=== PATIENT | female | born 1965 | race Caucasian/White ===

== ENCOUNTER 2018-09-10 19:03 | Observation (INO) | payer OTHER ==
[2018-09-10] MEDS ORDERED: NS 500 ML IV ONE (19:31)
--- NOTE | 2018-09-10 19:31 | EDPHY ---
H & P Time Seen by Provider: 09/10/18 19:04 HPI/ROS: CHIEF COMPLAINT: Dizziness HISTORY OF PRESENT ILLNESS: The patient is a 53-year-old female with a history of Lyme disease and migraines who presents emergency department with fairly sudden onset of dizziness. The patient was watching TV when she suddenly became "super dizzy." She feels more off balance than the room spinning. She states it is worse when she moves her head or looks to the side. She has no headache. No neck pain. No tenderness or hearing loss. She has no focal weakness or numbness. No vision change. The patient has no recent trauma or fall. No fevers or chills. The patient denies any chest pain or shortness of breath. She has had no diaphoresis. No leg pain or swelling. She has REVIEW OF SYSTEMS: 10 systems were reveiwed and are negative with the exception of the elements mentioned in the history of present illness. Past Medical/Surgical History: Includes Lyme disease, migraine, chronic pain Social history: Patient does not smoke. She is . is out of town. Smoking Status: Never smoked Physical Exam: Vitals noted. Mildly tachycardic at 1:05 a.m.. Blood pressure is elevated 180/ 93. GENERAL: Anxious appearing, alert. HEENT: Eyes normal to inspection, normal pharynx, no signs of dehydration. NECK: Normal, supple. No bruit RESPIRATORY: Clear to auscultation bilaterally, no rales, rhonchi or wheezing. CVS: Mildly tachycardic with regular rhythm, no rubs, murmurs, or gallops. ABDOMEN: Soft, nontender, nondistended, no organomegaly. BACK: Normal to inspection, no CVA tenderness. SKIN: Normal color, no rash, warm, dry. No pallor. EXTREMITIES: No pedal edema, no calf tenderness, no Homans sign or cords, no joint swelling. NEURO/PSYCH: Higher functions: Alert and Oriented x3. Normal speech and cognition. Anxious appearing. Cranial nerves: Normal as tested. Cerebellar: Normal as tested. Good finger to nose, good [id number], normal gait. Peripheral exam: Normal motor exam. Normal sensation. Normal reflexes. Constitutional: Initial Vital Signs Temperature (C) 36.7 C 09/10/18 19:13 Heart Rate 105 H 09/10/18 19:13 Respiratory Rate 20 09/10/18 19:13 Blood Pressure 180/93 H 09/10/18 19:13 O2 Sat (%) 98 09/10/18 19:13 O2 Delivery Mode Room Air Allergies/Adverse Reactions: azithromycin Allergy (Verified 09/10/18 19:17) Home Medications: Medication Instructions Recorded Carisoprodol [Soma (*)] 350 mg PO TIDMEAL PRN 09/10/18 HYDROcodone/APAP 10/325 [Pine 1 each PO Q6 PRN 09/10/18 10/325 (*)] Medical Decision Making - Diagnostics Imaging Results: Imaging Impressions Head CT 09/10/18 19:31 Impression: 1. Nothing acute. 2. Right frontal falcine tumor or dural-based tumor/mass. Primary differential is a meningioma, measuring at 3.1 x 3.1 x 3.2 cm. Findings and recommendations discussed with Mary Grace Hong M.D., at 8:00 p.m., on September 10, 2018. Final report concurs with initial preliminary interpretation. ED Course/Re-evaluation: I met EMS on arrival. EMS treated the patient with Zoan. I took report from the general utility machine operator. In the emergency department I discussed possible etiologies with the patient. I answered all her questions. Laboratory studies were obtained. EKG: Sinus rhythm. Normal axis. Normal intervals. There is ST depression V3 through V6. Patient's CBC was unremarkable. Chemistry panel is notable for low potassium of 2.9. Renal function was normal. Coags were normal. Head CT: Please refer the dictated report. Patient has a significant meningioma noted. This is likely in the falcine. There is mass effect. I discussed the case with Dr. Ana Olivares. I discussed the results with the patient. I answered all her questions. I discussed the case with Dr. Lomax from Neurosurgery. He will evaluate the patient. I discussed the case with Dr. Garcia from the hospitalist service. He will admit. Differential Diagnosis: My differential includes but is not limited to ACS, acute OK, dysrhythmia, dissection, aneurysm, - Data Points Laboratory Results: Laboratory Results 09/10/18 19:20 09/10/18 19:20 09/10/18 09/10/18 09/10/18 19:28 19:20 19:20 WBC RBC Hgb Hct MCV MCH MCHC RDW Plt Count MPV Neut % (Auto) Lymph % (Auto) [place] % (Auto) Eos % (Auto) Baso % (Auto) Nucleat RBC Rel Count Absolute Neuts (auto) Absolute Lymphs (auto) Absolute Monos (auto) Absolute Eos (auto) Absolute Basos (auto) Absolute Nucleated RBC Immature Gran % Immature Gran # PT 12.7 SEC SEC (12.0-15.0) INR 0.93 (0.83-1.16) APTT 30.9 SEC SEC (23.0-38.0) Sodium 138 mEq/L mEq/L (135-145) Potassium 2.9 mEq/L L mEq/L (3.5-5.2) Chloride 109 mEq/L mEq/L (97-110) Carbon Dioxide 19 mEq/l L mEq/l (22-31) Anion Gap 10 mEq/L mEq/L (6-14) BUN 14 mg/dL mg/dL (7-23) Creatinine 0.6 mg/dL mg/dL (0.6-1.0) Estimated GFR > 60 Glucose 132 mg/dL H mg/dL (70-100) Calcium 10.0 mg/dL mg/dL (8.5-10.4) POC Troponin I 0.00 ng/mL ng/mL (0.00-0.08) 09/10/18 19:20 WBC 5.66 10^3/uL 10^3/uL (3.80-9.50) RBC 4.89 10^6/uL 10^6/uL (4.18-5.33) Hgb 14.5 g/dL g/dL (12.6-16.3) Hct 42.2 % % (38.0-47.0) MCV 86.3 fL fL (81.5-99.8) MCH 29.7 pg pg (27.9-34.1) MCHC 34.4 g/dL g/dL (32.4-36.7) RDW 12.2 % % (11.5-15.2) Plt Count 228 10^3/uL 10^3/uL (150-400) MPV 9.2 fL fL (8.7-11.7) Neut % (Auto) 50.3 % % (39.3-74.2) Lymph % (Auto) 38.7 % % (15.0-45.0) [place] % (Auto) 7.2 % % (4.5-13.0) Eos % (Auto) 2.7 % % (0.6-7.6) Baso % (Auto) 0.9 % % (0.3-1.7) Nucleat RBC Rel Count 0.0 % % (0.0-0.2) Absolute Neuts (auto) 2.85 10^3/uL 10^3/uL (1.70-6.50) Absolute Lymphs (auto) 2.19 10^3/uL 10^3/uL (1.00-3.00) Absolute Monos (auto) 0.41 10^3/uL 10^3/uL (0.30-0.80) Absolute Eos (auto) 0.15 10^3/uL 10^3/uL (0.03-0.40) Absolute Basos (auto) 0.05 10^3/uL 10^3/uL (0.02-0.10) Absolute Nucleated RBC 0.00 10^3/uL 10^3/uL (0-0.01) Immature Gran % 0.2 % % (0.0-1.1) Immature Gran # 0.01 10^3/uL 10^3/uL (0.00-0.10) PT INR APTT Sodium Potassium Chloride Carbon Dioxide Anion Gap BUN Creatinine Estimated GFR Glucose Calcium POC Troponin I Medications Given: Discontinued Medications Sodium Chloride (Ns) 500 mls @ 1,000 mls/hr IV EDNOW ONE PRN Reason: Protocol Stop: 09/10/18 20:00 Last Admin: 09/10/18 19:54 Dose: 500 mls Lorazepam (Ativan Injection) 0.5 mg IVP ONCE ONE Stop: 09/10/18 20:50 Last Admin: 09/10/18 20:50 Dose: 0.5 mg Meclizine HCl (Meclizine Hcl) 25 mg PO EDNOW ONE Stop: 09/10/18 20:14 Last Admin: 09/10/18 20:24 Dose: 25 mg Potassium Chloride (Klor-Con) 40 meq PO EDNOW ONE Stop: 09/10/18 20:11 Last Admin: 09/10/18 20:24 Dose: 40 meq Point of Care Test Results: Chemistry 09/10/18 19:28 POC Troponin I 0.00 ng/mL ng/mL (0.00-0.08) Departure - Departure Disposition: [facility] Inpatient Acute Clinical Impression: Dizziness, Meningioma Condition: Good
[2018-09-10 19:38] LABS: PLATELET COUNT 228 10^3/uL (150-400)
[2018-09-10 19:46] LABS: INR 0.93 (0.83-1.16); PROTIME(PATIENT) 12.7 SEC (12.0-15.0)
[2018-09-10] MEDS ORDERED: POTASSIUM CL 10 MEQ TAB PO ONE (20:10)
[2018-09-10] MEDS ORDERED: MECLIZINE HCL 25 MG TAB PO ONE (20:13)
[2018-09-10] MEDS ORDERED: PROMETHAZINE HCL 25 MG/ML INJ IVP PRN (20:17)
[2018-09-10] MEDS ORDERED: ONDANSETRON 4 MG/2 ML VIAL IVP PRN (20:17)
[2018-09-10] MEDS ORDERED: ACETAMINOPHEN 325 MG TAB PO PRN (20:17)
[2018-09-10] MEDS ORDERED: ONDANSETRON DISINTEGRATING 4 MG TAB PO PRN (20:17)
[2018-09-10] MEDS ORDERED: LORazepam 2 MG/ML INJ ONE (20:48)
[2018-09-10] MEDS ORDERED: LORazepam 2 MG/ML INJ IVP ONE ×2 (20:49→21:00)
[2018-09-10] MEDS ORDERED: GADOBUTROL 10 ML VIAL IVP ONE (21:20)
[2018-09-10] MEDS: NS 1,000 ML IV SCH (22:37)
--- NOTE | 2018-09-10 22:45 | CPEKG ---
Test Reason : OPEN Blood Pressure : / mmHG Vent. Rate : 089 BPM Atrial Rate : 091 BPM P-R Int : 166 ms QRS Dur : 110 ms QT Int : 386 ms P-R-T Axes : 039 016 -01 degrees QTc Int : 470 ms Sinus rhythm Nonspecific repol abnormality, diffuse leads Confirmed by Mary Grace Hong ([id number]) on 09/10/2018 10:44:58 PM Referred By: Mary Grace Hong Confirmed By:Mary Grace Hong
[2018-09-10] MEDS: oxyCODONE IR 5 MG TAB PO PRN (23:09)
[2018-09-10] MEDS ORDERED: CARISOPRODOL 350 MG TAB PO PRN (23:18)
[2018-09-10] MEDS ORDERED: LORazepam 2 MG/ML INJ IV PRN (23:45)
--- NOTE | 2018-09-11 01:44 | GHP ---
[f rep st] HISTORY AND PHYSICAL DATE OF ADMISSION: 09/10/2018 CHIEF COMPLAINT: Dizziness and new finding of likely meningioma. HISTORY OF PRESENT ILLNESS: The patient is a 53-year-old female with a past medical history of migra ine headaches who presented to the [facility] Emergency Room after experiencing a sen se of dizziness earlier today. The patient denies feeling a sense of vertigo. In the emergency room she had a CT scan of her head, which showed evidence of a right frontal falcine tumor or dural-based tumor/mass with primary consideration being a meningioma. The case was reviewed with neurosurgery a nd is recommended for admission to the hospital for further investigation of this mass. The patient states she has a history of chronic Lyme disease, chronic bilateral neck discomfort. She is not curr ently on any antibiotic therapy. PAST MEDICAL HISTORY: Migraine headaches, stated history of chronic Lyme disease. PAST SURGICAL HISTORY: None. MEDICATIONS: Soma 350 mg 3 times a day, hydrocodone 10/325 every 6 hours as needed. ALLERGIES: Azithromycin. FAMILY HISTORY: No family history of any brain tumors. SOCIAL HISTORY: The patient is a nonsmoker. She is currently . REVIEW OF SYSTEMS: CONSTITUTIONAL: No complaints of any fevers or chills. ENT: No recent upper re spiratory illnesses. CARDIOVASCULAR: No complaints of any chest pains, palpitations, or syncopal ep isodes. RESPIRATORY: No complaints of shortness of breath or productive cough. GI: No focal abdom inal pain. No nausea, vomiting, diarrhea, constipation. : No reports of any urinary incontinence . NEUROLOGIC: Positive for history of migraine headaches. She describes chronic low neck pain as w ell. HEMATOLOGIC: No history of any deep vein thrombosis or pulmonary embolism. PSYCHIATRIC: No h istory of anxiety or depression. ENDOCRINE: No history of any polyuria or heat intolerance. SKIN: No new skin rashes. MUSCULOSKELETAL: No focal joint pains. PHYSICAL EXAM: VITAL SIGNS: Temperature 36.7, blood pressure 180/93, which has improved to 158/85, heart rate 105, respirations 20, saturating 98% on room air. GENERAL: Patient appears comfortable. She is awake, alert, conversant, no acute distress, able to provide a good history. HEENT: Extraocu lar movements appear intact. Pupils equal and reactive. NECK: Supple. No thyroid enlargement appr eciated. CHEST: Clear to auscultation with normal respiratory effort. HEART: Regular rate and rhy thm. No murmurs. ABDOMEN: Soft, nontender, nondistended. : No Mendoza catheter in place. EXTREM ITIES: No significant edema noted. NEUROLOGIC: Cranial nerves 2-12 appear intact with 5/5 strength in extremities. LABS: White blood cell count 5, hemoglobin 14, platelets 228. Sodium 138, potassium 2.9, chloride 1 09, bicarb 19, BUN 14, creatinine 0.6, glucose of 132. INR is 0.93, PTT is 30. Troponin 0.00. ASSESSMENT/PLAN: Dizziness, uncertain if her symptoms are related to her current meningioma, but it does appear to be causing some effect on the brain tissue itself. Meningioma-suspected based upon CT and MR imaging. Await further recommendations from Neurosurgery c onsidering size. Hypokalemia, uncertain etiology. Replace and recheck again tomorrow morning. Check magnesium level as well. Deep venous thrombosis prophylaxis. Will hold heparin or Lovenox for now pending further recommendat ions from Neurosurgery. DISPOSITION: I recommend admission under inpatient status for neuro checks and close monitoring of h er neurologic status. /[id number]/MODL
[2018-09-11 05:29] LABS: PLATELET COUNT 196 10^3/uL (150-400)
[2018-09-11] MEDS: oxyCODONE IR 5 MG TAB PO PRN (07:22)
--- NOTE | 2018-09-11 08:50 | NEUSURGPN ---
Assessment/Plan: 53 yo female with acute onset of dizziness yesterday MRI brain: heterogenously enhancing dural based mass at the right frontal lobe, without surrounding brain edema. Likely meningioma - do not believe dizziness is from right frontal mass - will require surgical intervention with craniotomy for resection and biospy of mass but does not need to be done on this hospital admission Full consult note dictated. Subjective: Continues to have dizziness. No current nausea/vomiting. Objective: Awake. Alert. PERRL. EOMI Facial expression symmetrical Muscle strength full at 5/5 Sensation intact - Physician Discussed Patient with : [facility] Physical Exam - Vitals, I&O, Labs I and O 09/10/18 09/11/18 09/12/18 05:59 05:59 05:59 Intake Total 500 Output Total 1000 350 Balance -500 -350 Weight 58.06 kg Intake: IV Infused (ml) 500 Output: Urine (ml) 1000 350 Bedside Commode 1000 350 Other: Number of Voids Bedside Commode 1 1 Vital Signs Temp Pulse Resp BP Pulse Ox 36.9 C 88 16 140/87 H 96 09/11/18 07:49 09/11/18 07:49 09/11/18 07:49 09/11/18 07:49 09/11/18 07:49 Laboratory Results 09/11/18 05:00 09/11/18 05:00 ICD10 Worksheet Patient Problems: Problems Problem Status Onset Dizziness Acute Meningioma Acute
[2018-09-11] MEDS: HYDROCODONE/APAP 10/325 TAB PO PRN ×2 (09:34→17:29)
[2018-09-11] MEDS: POTASSIUM CL 10 MEQ TAB PO SCH (10:16)
--- NOTE | 2018-09-11 11:28 | GCON ---
[f rep st] CONSULTATION DATE OF CONSULTATION: 09/11/2018 HPI: The patient is a 53-year-old female who presented to the emergency department yesterday with acute onset of dizziness. She denies any trauma, injury, or triggering events. She describes the dizziness as an unsteadiness or lightheadedness rather than a vertigo-type sensation. At one point, she was feeling nauseated; however, this has resolved. No emesis. No seizures. No upper or lower extremity weakness, pain, numbness, or tingling. No changes in her speech. No difficulties with swallowing or changes in vision. PAST MEDICAL HISTORY: Lyme disease, chronic neck and back pain. PAST SURGICAL HISTORY: . SOCIAL HISTORY: Patient denies tobacco and recreational drug use. She lives with her and her son who is 17 years old. ALLERGIES: Azithromycin. CURRENT HOME MEDICATIONS: Soma and [place]. FAMILY HISTORY: No pertinent neurosurgical family history. REVIEW OF SYSTEMS: Negative except for what is mentioned in the HPI. PHYSICAL EXAM: GENERAL: Patient is seen, examined. Appears to be in no apparent distress. Mood and affect are appropriate. Alert and oriented. VITAL SIGNS: Blood pressure 140/87, heart rate 88, respirations 16, breathing 96% on room air, temperature 36.9. HEENT: Extraocular movements are intact. Pupils are equal and reactive. Facial expression is symmetrical. Tongue is midline with protrusion. Hearing is grossly intact. NEUROLOGIC: Speech is without dysarthria. Muscle strength is well preserved in upper and lower extremities at a 5/5, and sensation is intact to light touch. RESULTS: White count 4.32, hemoglobin 12.7, hematocrit 38.0, platelet count 196. PT 12.7, INR 0.93, PTT 30.9. Sodium 139, potassium 4.2, chloride 113, bicarb 22. BUN 11, creatinine 0.5. MRI of the brain: Heterogeneously enhancing dural-based mass at the right frontal lobe without surrounding brain edema contributing to mild surrounding parenchymal mass effect. Primary differential is a nonaggressive dural-based lesion such as a meningioma. ASSESSMENT AND PLAN: In summary, the patient is a 53-year-old female who presented with acute onset of dizziness, now slightly improved. She had a CT and MRI of the brain completed which demonstrates a heterogeneously enhancing dural-based mass at the right frontal lobe without surrounding brain edema, which is likely a meningioma. We do not believe the meningioma is the cause of her acute onset of dizziness. The patient will require, at some point, a craniotomy for resection and biopsy of the meningioma; however, this does not need to be done on this hospital admission. She does not require any Keppra or Decadron. We will defer further workup of dizziness to hospitalist. Patient can be discharged from our standpoint and follow up as an outpatient to schedule surgery. The patient was seen by myself and Dr. Lomax. /[id number]/MODL MTDD
[2018-09-11] MEDS: DIAZEPAM 5 MG TAB PO PRN ×2 (11:47→22:10)
[2018-09-11] MEDS: OXYMETAZOLINE 30 ML NASAL SPRAY EACHNARE SCH ×2 (11:48→22:08)
[2018-09-11] MEDS: MECLIZINE HCL 25 MG TAB PO PRN (11:48)
[2018-09-11] MEDS: NS 1,000 ML IV SCH (11:48)
--- NOTE | 2018-09-11 13:05 | HOSPPROG ---
Hospitalist Progress Note Assessment/Plan: 53y female with c/o dizzyness. First encounter, chart reviewed. #Dizzyness -likely inner ear issue -try meclizine, valium -cont supportive care #Meningioma -will need further workup -will schedule as outpt #Hypokalemia -resloved #Abnormal TSH -recheck outpt -no changes currently #Dispo -unclear -will stay in hospital Subjective: Still dizzy. Tearful. No pain. Objective: Vital Signs Temp Pulse Resp BP Pulse Ox 36.9 C 85 16 134/84 H 95 09/11/18 11:26 09/11/18 11:26 09/11/18 11:26 09/11/18 11:26 09/11/18 11:26 Laboratory Results 09/11/18 05:00 09/11/18 05:00 09/10/18 09/11/18 09/12/18 05:59 05:59 05:59 Intake Total 500 Output Total 1000 1250 Balance -500 -1250 PT 12.7 SEC (12.0-15.0) 09/10/18 19:20 INR 0.93 (0.83-1.16) 09/10/18 19:20 - Physical Exam Constitutional: no apparent distress, appears nourished, not in pain Eyes: PERRL, anicteric sclera, EOMI Ears, Nose, Mouth, Throat: moist mucous membranes, hearing normal, ears appear normal Cardiovascular: regular rate and rhythym, No JVD, No edema Respiratory: no respiratory distress, no rales or rhonchi, reduced air movement Gastrointestinal: normoactive bowel sounds, No tenderness, No ascites Skin: warm, normal color, No mottled Musculoskeletal: normal joint ROM, no joint effusions, generalized weakness Neurologic: AAOx3 Psychiatric: interacting appropriately, not anxious, not encephalopathic, thought process linear ICD10 Worksheet Patient Problems: Problems Problem Status Onset Dizziness Acute Meningioma Acute
--- NOTE | 2018-09-11 16:07 | ASMTCMCOM ---
CM Note CM Note Notes: Pt was admitted with dizziness. R frontal mass (possible meningioma) was found on imaging. Neurology is following. Pt has a hx of migraines, Lyme disease. She is and lives in [place]. May need a craniotomy for resection an bx in the future. PT has cleared. CM will follow for any d/c needs. D/C plan: likely independent Date Signed: 09/11/2018 04:07 PM Electronically Signed By:ROBIN Brasher
[2018-09-12] MEDS: NS 1,000 ML IV SCH (00:35)
[2018-09-12 05:13] LABS: PLATELET COUNT 206 10^3/uL (150-400)
[2018-09-12 07:49] VITALS: BP 139/87
--- NOTE | 2018-09-12 08:01 | NEUSURGPN ---
Assessment/Plan: 53 yo female with acute onset of dizziness, now improved MRI brain: heterogenously enhancing dural based mass at the right frontal lobe, without surrounding brain edema. Likely meningioma - neuro stable - ok for discharge from neurosurgery standpoint and FU as outpatient to discuss scheduling craniotomy for resection of mass - will sign off and follow peripherally Discussed with Dr. Lomax. Subjective: Dizziness improved. Objective: Awake. Alert. PERRL. EOMI Facial expression symmetrical Muscle strength full - Physician Discussed Patient with : [facility] Physical Exam - Vitals, I&O, Labs I and O 09/11/18 09/12/18 09/13/18 05:59 05:59 05:59 Intake Total 500 1050 Output Total 1000 2700 Balance -500 -1650 Weight 58.06 kg Intake: Oral (ml) 300 IV Infused (ml) 500 750 Ns 1,000 ml @ 75 mls/hr 750 IV CONT BRENNON Rx#: [id number] Output: Urine (ml) 1000 2700 Bedside Commode 1000 1250 Toilet 1450 Other: Intake Quantity Yes Sufficient Number of Voids Bedside Commode 1 1 Toilet 1 1 Number of Stools Toilet 1 Vital Signs Temp Pulse Resp BP Pulse Ox 36.9 C 84 16 139/87 H 96 09/12/18 07:41 09/12/18 07:41 09/12/18 07:41 09/12/18 07:41 09/12/18 07:41 Laboratory Results 09/12/18 04:56 09/12/18 04:56 ICD10 Worksheet Patient Problems: Problems Problem Status Onset Dizziness Acute Meningioma Acute
[2018-09-12] MEDS: HYDROCODONE/APAP 10/325 TAB PO PRN (08:46)
[2018-09-12] MEDS: MECLIZINE HCL 25 MG TAB PO PRN (08:46)
[2018-09-12] MEDS: OXYMETAZOLINE 30 ML NASAL SPRAY EACHNARE SCH (08:47)
[2018-09-12] MEDS: POTASSIUM CL 10 MEQ TAB PO SCH (08:56)
--- NOTE | 2018-09-12 15:29 | GDS ---
[f rep st] DISCHARGE SUMMARY DISCHARGE DIAGNOSES: 1. Dizziness. 2. Meningioma. CONSULTATIONS: Neurosurgery. STUDIES AND PROCEDURES: 1. MRI of the brain. 2. CT of the head. PHYSICAL EXAM: GENERAL: The patient is alert and oriented. VITAL SIGNS: Afebrile at 36.9, pulse i s 84, respiratory rate 16, blood pressure 139/87, she is saturating 96% on room air. I have seen and evaluated the patient on the day of discharge. HOSPITAL COURSE: Patient is a 53-year-old female who presented to the emergency room with complaints of dizziness. She was evaluated and diagnosed with: 1. Dizziness. This is likely an inner ear issue. The patient's symptoms have significantly improve d. She recently had travel and viral infection and states that she has some mild right inner ear pre ssure. She is stable with regard to this. 2. Meningioma. This is an incidental finding during the patient's hospitalization, MRI was performe d, as well as CT of the head. Neurosurgery consultation was done. Patient will follow up in the out patient setting with further evaluation and diagnosis of meningioma. 3. Hypokalemia. This has resolved with replacement. 4. Abnormal TSH. Patient will have this re-evaluated in the outpatient setting by her primary care physician. DISPOSITION: She will be discharged home. FOLLOWUP: Followup will be with her primary care physician, as well as Dr. Alfredo Lomax of Neurosur[facility]. There are no pending studies. DISCHARGE MEDICATIONS: Please refer to EMR form. I have provided the patient a prescription for Siomara ium p.r.n. to assist with acute dizziness. I have not adjusted any of her previously prescribed home medications to the best of my knowledge. /[id number]/MODL
== END 2018-09-12 12:14 | disposition home or self-care (01) ==
LOC: EDUNIT# → OBSVTOIN 20:13 → INTOOBSV 20:13 → F3N 22:08
PROVIDERS: ADMIT Internal Medicine; ATTEND Internal Medicine
DX: R55 Syncope and collapse (principal); D42.9 Neoplasm of uncertain behavior of meninges, unspecified; A69.20 Lyme disease, unspecified; G43.909 Migraine, unspecified, not intractable, without status migrainosus; E87.6 Hypokalemia; M54.2 Cervicalgia; E86.0 Dehydration
CPT/HCPCS: 70450; 70553; 93005; 96374; 97112; 97116; 97162; 99285; G0378; 84484-ER; A9585; J2060

== ENCOUNTER → 2018-12-08 | Outpatient (CLI) | payer OTHER ==
[~2018-12-08] MED LIST: GADOBUTROL 10 ML VIAL IVP ONE
== END ==
LOC: FIMAGING 12:03
PROVIDERS: ATTEND Neurological Surgery
DX: D33.2 Benign neoplasm of brain, unspecified (principal)
CPT/HCPCS: A9585